=== PATIENT | male | born 2000 | race Caucasian/White ===

== ENCOUNTER 2023-08-18 21:01 | Emergency (ER) | payer MEDICAID ==
[~2023-08-18] VITALS: Ht 167.6 cm; Wt 51.5 kg
[2023-08-18 21:02] VITALS: BP 142/93; PULSE 83; RESP 16; TEMP 98.6; O2SAT 100
[2023-08-18 21:38] LABS: BASOPHILS % (AUTO) 0.3 % (0-1); EOSINOPHILS # (AUTO) 0.1 X10'3 (0-0.9); EOSINOPHILS % (AUTO) 0.8 % (0-6); HEMATOCRIT 47.3 % (42.0-52.0); HEMOGLOBIN 16.2 g/dl (14.0-17.9); LYMPHOCYTES # (AUTO) 1.6 X10'3 (1.1-4.8); MEAN CORPUSCULAR HEMOGLOBIN 32.9 PG (27.0-31.0); MEAN CORPUSCULAR HGB CONC 34.2 g/dL (33.0-36.5); MEAN CORPUSCULAR VOLUME 96.3 FL (78-98); MEAN PLATELET VOLUME 9.4 FL (7.4-10.4); MONOCYTES # (AUTO) 0.4 X10'3 (0-0.9); MONOCYTES % (AUTO) 5.2 % (2-12); NEUTROPHILS # (AUTO) 6.4 X10'3 (1.8-7.7); NEUTROPHILS % (AUTO) 74.7 % (42-75); PLATELET COUNT 233 X10'3 (140-440); RED BLOOD COUNT 4.91 X10'6 (4.70-6.10); RED CELL DISTRIBUTION WIDTH 13.3 % (11.5-14.5); WHITE BLOOD COUNT 8.6 X10'3 (4.5-11.0)
[2023-08-18 21:39] LABS: BILIRUBIN,URINE NEGATIVE (Neg); CLARITY,URINE CLEAR (Clear); COLOR,URINE YELLOW (Yellow); GLUCOSE, URINE NEGATIVE (Neg); KETONES,URINE NEGATIVE (Neg); LEUKOCYTE ESTERASE ,URINE NEGATIVE (Neg); NITRITES, URINE NEGATIVE (Neg); OCCULT BLOOD,URINE NEGATIVE (Neg); PROTEIN,URINE NEGATIVE (Neg); UROBILINOGEN,URINE 0.2 E.U/dL (0.2-1.0)
[2023-08-18 21:41] LABS: UA COLLECTION TYPE CLN CATCH MIDSTREAM
[2023-08-18 21:57] LABS: ALANINE AMINOTRANSFERASE 36 U/L (12-78); ALBUMIN 3.8 G/DL (3.4-5.0); ALBUMIN/GLOBULIN RATIO 1.1 (1.1-1.5); ALKALINE PHOSPHATASE 132 IU/L (20-180); ANION GAP 7 (8-16); ASPARTATE AMINO TRANSFERASE 47 U/L (10-37); BILIRUBIN,TOTAL 0.4 MG/DL (0.1-1.0); BLOOD UREA NITROGEN 8 MG/DL (7-18); BUN/CREATININE RATIO 8.3 (10.0-20.0); CALCIUM 9.5 MG/DL (8.5-10.1); CHLORIDE 100 MMOL/L (99-107); CREATININE 0.96 MG/DL (0.60-1.10); GLUCOSE 153 MG/DL (70-104); LIPASE 39 U/L (16-77); POTASSIUM 3.7 MMOL/L (3.5-5.1); SODIUM 137 MMOL/L (135-145); TOTAL PROTEIN 7.4 G/DL (6.4-8.2); eCRCL 89 ML/MIN; eGFR > 90 ML/MIN
[2023-08-18] MEDS ORDERED: ONDA4TAB12 PO (22:31)
== END 2023-08-18 22:38 | disposition home or self-care (01) ==
LOC: ER 21:02
DX: K52.89 Other specified noninfective gastroenteritis and colitis (principal); R73.9 Hyperglycemia, unspecified
CPT/HCPCS: 36415; 80053; 81003; 83690; 85025; 99283

== ENCOUNTER 2023-08-19 12:04 | Emergency (ER) | payer MEDICAID ==
[~2023-08-19] VITALS: Ht 170.2 cm; Wt 50.0 kg
[~2023-08-19 12:04] MED LIST: ONDA4TAB12 PO
[2023-08-19 12:36] VITALS: BP 134/117; PULSE 75; RESP 18; TEMP 98.4; O2SAT 99
[2023-08-19 14:32] LABS: BASOPHILS % (AUTO) 0.2 % (0-1); EOSINOPHILS % (AUTO) 0.1 % (0-6); HEMATOCRIT 47.1 % (42.0-52.0); LYMPHOCYTES # (AUTO) 1.7 X10'3 (1.1-4.8); LYMPHOCYTES % (AUTO) 19.6 % (21-51); MEAN CORPUSCULAR HEMOGLOBIN 32.4 PG (27.0-31.0); MEAN CORPUSCULAR VOLUME 95.3 FL (78-98); MEAN PLATELET VOLUME 9.3 FL (7.4-10.4); MONOCYTES # (AUTO) 0.6 X10'3 (0-0.9); MONOCYTES % (AUTO) 6.6 % (2-12); NEUTROPHILS # (AUTO) 6.5 X10'3 (1.8-7.7); NEUTROPHILS % (AUTO) 73.5 % (42-75); PLATELET COUNT 270 X10'3 (140-440); RED BLOOD COUNT 4.95 X10'6 (4.70-6.10); RED CELL DISTRIBUTION WIDTH 13.4 % (11.5-14.5); WHITE BLOOD COUNT 8.9 X10'3 (4.5-11.0)
[2023-08-19 14:44] LABS: ALANINE AMINOTRANSFERASE 27 U/L (12-78); ALBUMIN 3.8 G/DL (3.4-5.0); ALKALINE PHOSPHATASE 126 IU/L (20-180); ANION GAP 7 (8-16); ASPARTATE AMINO TRANSFERASE 23 U/L (10-37); BILIRUBIN,TOTAL 0.6 MG/DL (0.1-1.0); BLOOD UREA NITROGEN 6 MG/DL (7-18); BUN/CREATININE RATIO 6.5 (10.0-20.0); CALCIUM 9.6 MG/DL (8.5-10.1); CHLORIDE 98 MMOL/L (99-107); CREATININE 0.92 MG/DL (0.60-1.10); GLUCOSE 102 MG/DL (70-104); LIPASE 70 U/L (16-77); POTASSIUM 3.5 MMOL/L (3.5-5.1); SODIUM 135 MMOL/L (135-145); TOTAL CARBON DIOXIDE 30.5 MMOL/L (24-32); TOTAL PROTEIN 7.5 G/DL (6.4-8.2); eCRCL 91 ML/MIN; eGFR > 90 ML/MIN
[2023-08-19] MEDS ORDERED: iohexol 300mg/ml 100ml inj. ONE (17:53)
[2023-08-19] MEDS ORDERED: ketorolac tromethamine 15mg/ml inj. IV ONE (18:35)
[2023-08-19] MEDS ORDERED: normal saline 1000ML IV soln IVB ONE (18:35)
[2023-08-19] MEDS ORDERED: proCHLORperazine 10 MG/2 ml inj IV ONE (18:35)
[2023-08-19] MEDS ORDERED: diphenhydrAMINE 25 MG/10 ML UD oral solution PO STA (18:42)
[2023-08-19] MEDS ORDERED: LIDOcaine Viscous 15ml cup TP STA (18:42)
[2023-08-19] MEDS ORDERED: mag hydrox/Alum hydrox/simeth 30ml oral suspension PO ONE (18:45)
[2023-08-19] MEDS ORDERED: mag & alum hydrox/simeth susp 40 ML, diphenhydrAMINE oral solution 100 MG, LIDOcaine Vi... PO ONE ×3 (18:55)
[2023-08-19] MEDS ORDERED: mag & alum hydrox/simeth susp 40 ML, diphenhydrAMINE oral solution 100 MG, LIDOcaine Vi... PO PRN ×3 (18:55)
== END 2023-08-19 21:22 | disposition home or self-care (01) ==
LOC: ER 12:04
DX: K29.00 Acute gastritis without bleeding (principal); Z20.822 Contact with and (suspected) exposure to COVID-19; R11.2 Nausea with vomiting, unspecified; F41.9 Anxiety disorder, unspecified; F12.90 Cannabis use, unspecified, uncomplicated; Z79.899 Other long term (current) drug therapy
CPT/HCPCS: 36415; 74177; 80053; 83690; 85025; 87502; 87503; 87811; 96361; 96374; 96375; 99285; J0780; J1885; J3490; J7030; Q9967

== ENCOUNTER 2025-02-07 12:37 | Inpatient (IN) | payer MEDICAID ==
[~2025-02-07] VITALS: Ht 165.1 cm; Wt 62.6 kg
[~2025-02-07 12:37] MED LIST changes: +ONDA-243 PO; -ONDA4TAB12 PO
[2025-02-07] MEDS ORDERED: CefTRIAXone 2gm/NS 100ml IVPB 50 ML IV ONE (13:30)
[2025-02-07] MEDS ORDERED: vancomycin inj 1,000 MG in normal saline 250ml IV soln 250 ML IV ONE (13:35)
--- NOTE | 2025-02-07 13:36 | ELECTROCARDIOGRAPH REPORT ---
[facility] Test Date: 2025-02-07 Test Time: 13:33:33 Pat Name: ARIADNA JACOBS Department: [facility]- Patient ID: [id number] Room: Gender: M Manager Science: : 2000 Requested By: HERBERT MCCORMICK Order Number: [id number] Reading MD: Measurements Intervals [place] Rate: 69 P: 56 UT: 109 QRS: 83 QRSD: 90 T: 47 QT: 383 QTc: 411 Interpretive Statements Sinus rhythm Short UT interval Please click the below link to view image of tracing.
--- NOTE | 2025-02-07 13:38 | Physician Documentation ---
History of Present Illness ~ Chief Complaint: Penile Pain Stated Complaint: "INFECTION DOWN THERE" Time Seen by MD: 13:22 Primary Medical Doctor: ROXIE BRODY 24-year-old male presenting for acute onset penis and scrotum redness and swelling that started two days ago. Patient states that about five days ago he developed a diffuse rash on his arms and chest. He does not know what could have caused it. He went to urgent care a couple of days ago for the rash and was started on prednisone and ciprofloxacin. He states that since then he has noticed increased redness and swelling around his genitals. He states that his penis is now very swollen. He denies any burning or pain on urination. He denies any discharge from his urethra. He states that about five months ago he did have some unprotected sex but he has not had some issues since that time. He denies any fever, chills or any other associated symptoms. Denies any new soaps or detergents. Medication Reconciliation Allergies: Coded Allergies: No Known Allergies (Unverified , 10/07/09) Scheduled PRN ONDANSETRON ODT 4mg tablet (Ondansetron Odt), 4 MG PO TID PRN for nausea/vomiting Miscellaneous Medications Home Med List (No Home Medications), (Reported) Past Medical History Past Medical History: Anxiety Review of Systems All Other Systems at this time: Reviewed and Negative Physical Exam Vital Signs: Temperature: 98.3, Source: Oral, Heart Rate: 69, Respiratory Rate: 18, BP: 126/78, Pulse Oximetry: 98, Weight: 62.600 Oxygen Flow Rate: 0 Physical Exam I have reviewed the triage vitals. CONST: Well developed and well nourished. In no acute distress HENT: Head Atraumatic EYES: Pupils are equal, round and reactive to light. Normal conjunctiva NECK: Normal range of motion. Supple. CARDIO: Normal rate and regular rhythm. No murmurs, rubs, or gallops. S1, S2. PULM/CHEST: No respiratory distress. Lungs clear to auscultation. No wheeze ABD: Soft and nontender. Nondistended. Bowel sounds normal. No guarding. : Significant edema and erythema of the penile shaft as well as the scrotum. There is a erythematous maculopapular rash present also over the suprapubic area and the inner thighs. MSK: No edema. No deformity. NEURO: Alert and oriented to person, place and time. Moving all extremities SKIN: Warm and dry. There is a erythematous confluent rash on the arms PSYCH: Normal mood and affect. Good eye contact. Progress Results/Orders Results/Orders Orders - HERBERT MCCORMICK MD Culture Blood (02/07/25 13:27) RPR (02/07/25 13:30) Chlam/Gc Amp Ur (02/07/25 13:30) Us Testic/W/Duplex (02/07/25 13:34) Ct Chest Abdomen Pelvis (02/07/25 13:34) Page Hospitalist (02/07/25 17:05) Fill Out Med Reconciliation (02/07/25 17:05) Completed Orders - HERBERT MCCORMICK MD Electrocardiogram (02/07/25 13:27) Cbc/Diff (02/07/25 13:27) CK (02/07/25 13:27) CKMB (02/07/25 13:27) ESR (02/07/25 13:27) C-Reactive Protein (02/07/25 13:27) Pt Inr (02/07/25 13:27) PTT (02/07/25 13:27) Urinalysis, Cult If Indicated (02/07/25 13:27) MG (02/07/25 13:27) Normal Saline 1000ml (Sodium Chloride 10 (02/07/25 13:30) Dexamethasone Inj (Decadron 10mg/Ml Inj) (02/07/25 13:30) Ceftriaxone 2gm/Ns 100ml Ivpb (Rocephin (02/07/25 13:30) CMP (02/07/25 13:27) Hs Troponin I W Calculations (02/07/25 13:27) Hs Troponin I W Calculations (02/07/25 15:27) Lacticsepsis (02/07/25 13:27) Procalcitonin (02/07/25 13:27) Hiv Ab 1&2 Rapid Scn (02/07/25 13:30) Piperacillin/Tazo 4.5gm/100ml (Zosyn 4.5 (02/07/25 13:35) Vancomycin Inj (Vancomycin Inj) (02/07/25 13:35) Us Testic/W/Duplex (02/07/25 13:34) Ct Chest Abdomen Pelvis (02/07/25 13:34) Vancomycin/Ns 1 Gm Add-[place] (Vancomyc (02/07/25 13:46) Iohexol 300mg/Ml 100ml Inj. (Omnipaque-3 (02/07/25 13:59) Diphenhydramine Inj (Benadryl Inj.) (02/07/25 15:10) Famotidine/Pf Iv Inj (Pepcid Iv Inj) (02/07/25 15:10) Normal Saline 1000ml (Sodium Chloride 10 (02/07/25 17:00) Thiamine Tablet (Thiamine Tablet) (02/07/25 17:00) Folic Acid Tablet (Folic Acid Tablet) (02/07/25 17:00) Diazepam Inj (Valium Inj) (02/07/25 17:00) Ketorolac Trometh 30mg/Ml Vial (Toradol (02/07/25 17:00) Fluconazole Tablet (Diflucan Tablet) (02/07/25 17:10) Vital Signs 02/07/25 02/07/25 02/07/25 02/07/25 12:58 13:27 14:18 15:28 Temp 98.3 98.3 98.3 Pulse 82 69 78 66 Resp 16 18 16 14 B/P (MAP) 155/85 126/78 (94) 129/78 (95) 119/81 (94) Pulse Ox 100 98 98 100 O2 Flow Rate 0 0 0 0 02/07/25 16:56 Temp 98.3 Pulse 76 Resp 15 B/P (MAP) 120/73 (89) Pulse Ox 98 O2 Flow Rate 0 Laboratory Tests Test 02/07/25 14:28 02/07/25 16:48 02/07/25 16:55 White Blood Count 9.6 Red Blood Count 4.53 L Hemoglobin 15.3 Hematocrit 44.2 Mean Corpuscular Volume 97.4 Mean Corpuscular Hemoglobin 33.7 H Mean Corpuscular Hemoglobin Concent 34.6 Red Cell Distribution Width 13.1 Platelet Count 183 Mean Platelet Volume 9.6 Neutrophils (%) (Auto) 91.6 H Lymphocytes (%) (Auto) 5.6 L Monocytes (%) (Auto) 2.1 Eosinophils (%) (Auto) 0.6 Basophils (%) (Auto) 0.1 Neutrophils # (Auto) 8.8 H Lymphocytes # (Auto) 0.5 L Monocytes # (Auto) 0.2 Eosinophils # (Auto) 0.1 Basophils # (Auto) 0.0 CBC Comment Erythrocyte Sedimentation Rate 1 Prothrombin Time 11.1 INR International Normalized Ratio 1.1 Activated Partial Thromboplast Time 26 Coagulation Comments Sodium Level 141 Potassium Level 3.6 Chloride Level 106 Carbon Dioxide Level 29.1 Anion Gap 6 L Blood Urea Nitrogen 8 Creatinine 0.89 Estimated GFR/1.73 m2 > 90 BUN/Creatinine Ratio 9.0 L Glucose Level 122 H Lactic Acid Level 1.0 Calcium Level 8.7 Magnesium Level 1.7 Total Bilirubin 0.8 Aspartate Amino Transf (AST/SGOT) 14 Alanine Aminotransferase (ALT/SGPT) 12 Alkaline Phosphatase 93 Total Creatine Kinase 122 Creatine Kinase MB 1.2 Creatine Kinase MB Relative Index 1.0 Troponin I High Sensitivity 4 < 4 L C-Reactive Protein 0.19 Total Protein 6.9 Albumin 3.9 Globulin 3.0 Albumin/Globulin Ratio 1.3 Procalcitonin < 0.05 Chemistry Comments HIV (1&2) Antibody Non-reactive Troponin I High Sens Percent Delta Troponin I Hi Sens Absolute Change Urine Specimen Description Voided Urine Color Yellow Urine Clarity Clear Urine pH 8.0 Urine Specific [place] 1.010 Urine Protein Negative Urine Glucose (UA) Negative Urine Ketones Negative Urine Occult Blood Negative Urine Nitrite Negative Urine Bilirubin Negative Urine Urobilinogen 0.2 Urine Leukocyte Esterase Negative Urine Culture Indicated Not ind Volume Urine Centrifuged 10 ml Urine Comment Urine Opiates Screen Negative Urine Methadone Screen Negative Urine Fentanyl Screen Positive H Urine Barbiturates Screen Negative Urine Phencyclidine Screen Negative Urine Amphetamines Screen Negative Urine Benzodiazepines Screen Negative Urine Cocaine Screen Negative Urine Cannabinoids Screen Positive Drug Screen Comment Microbiology Date/Time Source Procedure Growth Status 02/07/25 16:48 Blood Hand Left Blood Culture - Preliminary NEGATIVE (LESS THAN 24 HOURS) Resulted EKG/XRAY/CT/US/VASC/MRI EKG : Additional Comment EKG as interpreted by ED shows normal sinus rhythm with a rate of 69 beats per minute, normal axis, no ischemia CT : Impression Exam: CT CT CHEST ABDOMEN PELVIS W/ IV CONTRAST History: penile and srotal swelling- r/o nec fasc Comparison Study: CT CT ABDOMEN PELVIS on DOS: 08/19/23 Technique: Multidetector spiral CT of the chest, abdomen and pelvis was performed from lower neck to pubic symphysis. Intravenous contrast was administered during this examination. Portal venous imaging was obtained. Axial, coronal and sagittal multiplanar reformats were performed by the technologist on a separate workstation. Radiation Dose : 1. Chest/Abdomen/Pelvis: CTDIvol 8.0 mGy, DLP 831 mGy*cm. Findings: Lower neck: Normal thyroid. Lungs: No focal consolidation, pleural effusion or pneumothorax. Heart/Vascular Structures: Normal heart size. No pericardial effusion. Lymph Nodes: No adenopathy Pleura: No pleural effusion or significant pneumothorax. Liver: The liver is normal in size. No focal lesions. Normal hepatic vascular enhancement. Gallbladder and Biliary Tree: Unremarkable Spleen: Unremarkable Pancreas: The pancreas is normal in appearance without focal lesions or abnormal enhancement. Adrenal Glands: Unremarkable Kidneys: Kidneys demonstrate normal symmetric enhancement without focal lesions, calculi or hydronephrosis. Bladder: Unremarkable Bowel: The stomach is grossly normal in appearance. Concentric wall thickening throughout the distal colon is suggestive of infectious/inflammatory colitis. The appendix is not visualized; however, no secondary findings of acute appendicitis identified. Ascites: Absent Lymphadenopathy: No mesenteric, retroperitoneal or periportal lymphadenopathy. Abdominal Wall and Mesentery: Unremarkable. Vasculature: The visualized abdominal aorta is normal in size and caliber. Abdominal and pelvic vessels demonstrate normal enhancement. Pelvic Organs: Scattered fat stranding is seen adjacent to the scrotum which may reflect focal infectious/ inflammatory process. No soft tissue gas or abscess is seen. No evidence of necrotizing fasciitis. Musculoskeletal: No aggressive focal bony lesions, acute fractures or dislocation. IMPRESSION: 1. Concentric wall thickening throughout the distal colon is suggestive of infectious/inflammatory colitis. 2. Scattered fat stranding is seen adjacent to the scrotum which may reflect focal infectious/ inflammatory process. No soft tissue gas or abscess is seen. No evidence of necrotizing fasciitis. Ultrasound : Impression ULTRASOUND OF SCROTUM AND CONTENTS. INDICATION: scrotal swelling COMPARISON: None TECHNIQUE: Multiple real-time grayscale sonographic and color and duplex Doppler images of the scrotum and its contents were obtained. FINDINGS: The right testicle measures 2.5 x 2.1 x 2.5 cm. The left testicle measures 3.6 x 2.3 x 2.1 cm. Both testicles demonstrate homogeneous echotexture without evidence of focal lesions. There is prominent diffuse scrotal edema. The right epididymal head measures 1.2 cm. The left epididymal head measures 1.5 cm. Subsequent color and duplex Doppler interrogation of the testes demonstrated symmetric normal vascular flow to both testicles. No focal areas of hyperemia were seen. The penis appears to be swollen and possibly bent, although not well visualized. IMPRESSION: Prominent diffuse scrotal edema. The penis also appears to be swollen and possibly bent, although not well visualized. Recommend clinical correlation. No evidence of torsion, epididymitis or orchitis. Medical Decision Making Additional Comment This is a 24-year-old male presenting with significant erythema and edema of his penis and scrotum which is of acute onset. Differential diagnosis broad and includes but not limited to penile and scrotal cellulitis versus allergic inflammatory reaction versus sexually transmitted disease amongst other etiologies. The patient's lab work is grossly unremarkable. A ultrasound of the scrotum indicates thickening of the scrotal wall. CT of the abdomen and pelvis is negative for any signs of necrotizing fasciitis however there is ext ensive fat stranding around the scrotum. The patient was medicated with IV vancomycin and Zosyn. He was also given 10 mg of IV dexamethasone. He was also given 50 mg of IV Benadryl and 20 mg of IV Pepcid with good improvement of his symptoms. I did speak with Dr. Taylor of Urology who recommended medical management at this time. Given the extent of the erythema and edema I believe it would be prudent to have the patient admitted for medical management and observation until his symptoms further improve. Report called to admitting hospitalist team who accepted the patient. STD tests including HIV, gonorrhea and chlamydia, RPR were also done and are pending at this time. Departure Disposition: ADMITTED INPATIENT Admitted to Inpatient Unit: to hospitalist Impression: Primary Impression: Penile cellulitis Additional Impressions: Cellulitis of scrotum Tinea cruris Condition: Guarded Referrals: NO PRIMARY CARE PROVIDER (PCP) Signature Scribe Signature: 1 Attestation: 1 HERBERT MCCORMICK MD February 07, 2025 13:38
[2025-02-07] MEDS ORDERED: iohexol 300mg/ml 100ml inj. ONE (13:59)
[2025-02-07] MEDS: dexamethasone sod phosphate 10mg/ml inj IV ONE (14:10)
[2025-02-07] MEDS: normal saline 1000ML IV soln IVB ONE (14:10)
--- NOTE | 2025-02-07 14:28 | RADIOLOGY REPORT ---
ULTRASOUND OF SCROTUM AND CONTENTS. INDICATION: scrotal swelling COMPARISON: None TECHNIQUE: Multiple real-time grayscale sonographic and color and duplex Doppler images of the scrotu m and its contents were obtained. FINDINGS: The right testicle measures 2.5 x 2.1 x 2.5 cm. The left testicle measures 3.6 x 2.3 x 2.1 cm. Both testicles demonstrate homogeneous echotexture without evidence of focal lesions. There is promin ent diffuse scrotal edema. The right epididymal head measures 1.2 cm. The left epididymal head measures 1.5 cm. Subsequent color and duplex Doppler interrogation of the testes demonstrated symmetric normal vascula r flow to both testicles. No focal areas of hyperemia were seen. The penis appears to be swollen and possibly bent, although not well visualized. IMPRESSION: Prominent diffuse scrotal edema. The penis also appears to be swollen and possibly bent, although not well visualized. Recommend clinical correlation. No evidence of torsion, epididymitis or orchitis.
[2025-02-07 14:59] LABS: BASOPHILS % (AUTO) 0.1 % (0-1); EOSINOPHILS # (AUTO) 0.1 X10'3 (0-0.9); EOSINOPHILS % (AUTO) 0.6 % (0-6); HEMATOCRIT 44.2 % (42.0-52.0); HEMOGLOBIN 15.3 g/dl (14.0-17.9); LYMPHOCYTES # (AUTO) 0.5 X10'3 (1.1-4.8); LYMPHOCYTES % (AUTO) 5.6 % (21-51); MEAN CORPUSCULAR HEMOGLOBIN 33.7 PG (27.0-31.0); MEAN CORPUSCULAR HGB CONC 34.6 g/dL (33.0-36.5); MEAN CORPUSCULAR VOLUME 97.4 FL (78-98); MEAN PLATELET VOLUME 9.6 FL (7.4-10.4); MONOCYTES # (AUTO) 0.2 X10'3 (0-0.9); MONOCYTES % (AUTO) 2.1 % (2-12); NEUTROPHILS # (AUTO) 8.8 X10'3 (1.8-7.7); NEUTROPHILS % (AUTO) 91.6 % (42-75); PLATELET COUNT 183 X10'3 (140-440); RED BLOOD COUNT 4.53 X10'6 (4.70-6.10); RED CELL DISTRIBUTION WIDTH 13.1 % (11.5-14.5); WHITE BLOOD COUNT 9.6 X10'3 (4.5-11.0)
[2025-02-07 15:12] LABS: APTT 26 SECONDS (22-32); INR 1.1 INR; PROTHROMBIN TIME 11.1 SECONDS (9.0-12.0)
--- NOTE | 2025-02-07 15:19 | RADIOLOGY REPORT ---
Exam: CT CT CHEST ABDOMEN PELVIS W/ IV CONTRAST History: penile and srotal swelling- r/o nec fasc Comparison Study: CT CT ABDOMEN PELVIS on DOS: 08/19/23 Technique: Multidetector spiral CT of the chest, abdomen and pelvis was performed from lower neck to pubic symphysis. Intravenous contrast was administered during this examination. Portal venous imagi ng was obtained. Axial, coronal and sagittal multiplanar reformats were performed by the technologist on a separate workstation. Radiation Dose : 1. Chest/Abdomen/Pelvis: CTDIvol 8.0 mGy, DLP 831 mGy*cm. Findings: Lower neck: Normal thyroid. Lungs: No focal consolidation, pleural effusion or pneumothorax. Heart/Vascular Structures: Normal heart size. No pericardial effusion. Lymph Nodes: No adenopathy Pleura: No pleural effusion or significant pneumothorax. Liver: The liver is normal in size. No focal lesions. Normal hepatic vascular enhancement. Gallbladder and Biliary Tree: Unremarkable Spleen: Unremarkable Pancreas: The pancreas is normal in appearance without focal lesions or abnormal enhancement. Adrenal Glands: Unremarkable Kidneys: Kidneys demonstrate normal symmetric enhancement without focal lesions, calculi or hydroneph rosis. Bladder: Unremarkable Bowel: The stomach is grossly normal in appearance. Concentric wall thickening throughout the distal colon is suggestive of infectious/inflammatory colitis. The appendix is not visualized; however, no secondary findings of acute appendicitis identified. Ascites: Absent Lymphadenopathy: No mesenteric, retroperitoneal or periportal lymphadenopathy. Abdominal Wall and Mesentery: Unremarkable. Vasculature: The visualized abdominal aorta is normal in size and caliber. Abdominal and pelvic vess els demonstrate normal enhancement. Pelvic Organs: Scattered fat stranding is seen adjacent to the scrotum which may reflect focal infect ious/ inflammatory process. No soft tissue gas or abscess is seen. No evidence of necrotizing fasciit is. Musculoskeletal: No aggressive focal bony lesions, acute fractures or dislocation. IMPRESSION: 1. Concentric wall thickening throughout the distal colon is suggestive of infectious/inflammatory co litis. 2. Scattered fat stranding is seen adjacent to the scrotum which may reflect focal infectious/ inflam matory process. No soft tissue gas or abscess is seen. No evidence of necrotizing fasciitis.
[2025-02-07] MEDS: famotidine/PF 10 mg/ml inj IV ONE (15:20)
[2025-02-07] MEDS: diphenhydrAMINE 50 mg/ml inj IV ONE (15:20)
[2025-02-07] MEDS: vancomycin/NS 1 GM ADD-VANTAGE 250 ML IV ONE (15:21)
[2025-02-07 15:24] LABS: ALANINE AMINOTRANSFERASE 12 U/L (12-78); ALBUMIN 3.9 G/DL (3.4-5.0); ALBUMIN/GLOBULIN RATIO 1.3 (1.1-1.5); ALKALINE PHOSPHATASE 93 IU/L (46-116); ANION GAP 6 (8-16); ASPARTATE AMINO TRANSFERASE 14 U/L (10-37); BILIRUBIN,TOTAL 0.8 MG/DL (0.1-1.0); BLOOD UREA NITROGEN 8 MG/DL (7-18); CALCIUM 8.7 MG/DL (8.5-10.1); CHLORIDE 106 MMOL/L (99-107); CREATININE 0.89 MG/DL (0.60-1.10); GLUCOSE 122 MG/DL (70-104); POTASSIUM 3.6 MMOL/L (3.5-5.1); SODIUM 141 MMOL/L (135-145); TOTAL CARBON DIOXIDE 29.1 MMOL/L (24-32); TOTAL PROTEIN 6.9 G/DL (6.4-8.2); eCRCL 113 ML/MIN; eGFR > 90 ML/MIN
[2025-02-07 15:29] LABS: C-REACTIVE PROTEIN 0.19 MG/DL (0.0-0.5); CREATINE KINASE 122 U/L (39-308); CREATINE KINASE MB 1.2 ng/ml (0.3-3.6); MAGNESIUM 1.7 MG/DL (1.5-2.4)
[2025-02-07 15:38] LABS: HIV ANTIBODY 1&2 RAPID NON-REACTIVE (Neg)
[2025-02-07] MEDS: piperacillin/tazo 4.5gm/100ml 100 ML IV SCH ×2 (16:51→23:53)
[2025-02-07] MEDS ORDERED: folic acid 1mg tablet PO ONE (17:00)
[2025-02-07] MEDS ORDERED: ketorolac trometh 30MG/ML vial 30 MG/ML VIAL IV ONE (17:00)
[2025-02-07] MEDS ORDERED: thiamine 100mg tablet PO ONE (17:00)
--- NOTE | 2025-02-07 17:11 | HISTORY AND PHYSICAL ---
History & Physical Providers to ~ History of Present Illness Reason for Admit\Complaint: Penile swelling History of Present Illness History of present illness patient is a pleasant 24-year-old gentleman with no past medical history of significance was in his usual state of health started developing a rash about three days ago over his entire body mostly in his left chest wall bilateral antecubital fossas and then he started spreading into his private area but now the swelling in his penis is becomes so enlarged and painful and pruritic that he decided to come to the ER. Patient states this all began as him kind of feeling itchy about three days ago and when he started itching himself this would not go away and the redness in the itching got worse he felt like he should take a shower he did and still that it not help. patient's was seen in the ER by ER physician was concerned and ordered a CT scan of the abdomen and pelvis which is essentially negative a scrotal ultrasound which shows a bent swollen penis. He also consulted with the urologist Dr. Taylor over the telephone who said this does not seem anything urgent but she is happy to follow along if necessary. Patient denies any other associated symptoms. Allergies: Coded Allergies: No Known Allergies (Unverified , 10/07/09) Home Medications Home Medications Active Ondansetron Odt (Ondansetron HCl) 4 Mg Tab.rapdis 4 Mg PO TID PRN Past Medical History Past Medical History Past medical history nothing of significance Past surgical history nothing of significance Allergies are NKDA Social history denies any tobacco EtOH or IV drug abuse has tried marijuana in the past single lives locally Family history nothing of significance Review of systems negative for all 10 systems reviewed he says he is not currently sexually active he has been in the past and his last sexual encounter was 4-6 months ago Exam Vitals: Vital Signs Date Time Temp Pulse Resp B/P (MAP) Pulse Ox O2 Delivery O2 Flow Rate FiO2 02/07/25 16:56 98.3 76 15 120/73 (89) 98 0 General: Patient is alert and oriented x4 in no acute distress lying down comfortably speaking in full sentences HEENT normocephalic nontraumatic head PERRLA. EOMI. CVS first and second heart sounds are regular rate rhythm no murmurs gallops or rubs Respiratory system is clear to auscultate bilaterally no rales rhonchi crackles or wheezing Abdomen is soft scaphoid benign bowel sounds are positive nontender nondistended Extremities no clubbing cyanosis or edema His penis is plus two swollen the whole area in his groin is very red not warm to touch no active rash noted He does have a rash over his bilateral antecubital fossas more on the left over his entire chest wall more on the left than the right Neurological exam no focal deficits Diagnostic Data Last Recorded Lab Results: 02/07/25 1428 02/07/25 1428 Diagnostic Data: Laboratory Tests Test 02/07/25 14:28 Prothrombin Time 11.1 SECONDS (9.0-12.0) INR International Normalized Ratio 1.1 INR Activated Partial Thromboplast Time 26 SECONDS (22-32) Coagulation Comments Additional Plan Assessment and plan -rash etiology unclear possibly an allergic reaction to something -penile cellulitis with significant swelling patient is started on vanco and Zosyn I have ordered a full STD panel -I ordered patient DVT prophylaxis Date of Service: February 07, 2025 Billing Provider: MITCH SARABIA MD Common Visit Codes: [id number] INP/OBS CARE (HIGH) MITCH SARABIA MD February 07, 2025 17:11
[2025-02-07] MEDS ORDERED: acetaminophen 325mg tablet PO PRN (17:15)
[2025-02-07] MEDS ORDERED: morphine 2 MG/ML inj. syringe IV PRN (17:15)
[2025-02-07] MEDS ORDERED: magnesium hydroxide 30ml (MOM) UD suspension PO PRN (17:15)
[2025-02-07] MEDS ORDERED: potassium Cl 40MEQ/1/2NS 520ml 520 ML IV PRN (17:15)
[2025-02-07] MEDS ORDERED: magnesium Cl slow-release 64mg tablet PO PRN (17:15)
[2025-02-07] MEDS ORDERED: magnesium sulf-water 2g/50mL 50 ML IV PRN (17:15)
[2025-02-07] MEDS ORDERED: potassium Cl 20 mEq SR tablet PO PRN ×2 (17:15)
[2025-02-07] MEDS ORDERED: diphenhydrAMINE 25mg capsule PO PRN (17:15)
[2025-02-07] MEDS ORDERED: HYDROcodone/acetaminophen 5mg/325mg tablet PO PRN (17:15)
[2025-02-07] MEDS ORDERED: magnesium sulf-water 4G/100mL 100 ML IV PRN (17:15)
[2025-02-07] MEDS ORDERED: mag hydrox/Alum hydrox/simeth 30ml oral suspension PO PRN (17:15)
[2025-02-07] MEDS ORDERED: HYDROcodone/acetaminophen 10/325mg tab PO PRN (17:15)
[2025-02-07] MEDS ORDERED: ondansetron/PF 4mg/2ml inj IV PRN (17:15)
[2025-02-07 17:54] LABS: BILIRUBIN,URINE NEGATIVE (Neg); CLARITY,URINE CLEAR (Clear); COLOR,URINE YELLOW (Yellow); GLUCOSE, URINE NEGATIVE (Neg); KETONES,URINE NEGATIVE (Neg); LEUKOCYTE ESTERASE ,URINE NEGATIVE (Neg); NITRITES, URINE NEGATIVE (Neg); OCCULT BLOOD,URINE NEGATIVE (Neg); PROTEIN,URINE NEGATIVE (Neg); UROBILINOGEN,URINE 0.2 E.U/dL (0.2-1.0)
[2025-02-07] MEDS: fluconazole 150mg tablet PO ONE (17:59)
[2025-02-07] MEDS: normal saline 1000ml 1,000 ML IV ONE (18:00)
[2025-02-07 18:02] LABS: URINE AMPHETAMINE SCREEN NEGATIVE (Neg); URINE BARBITUATE SCREEN NEGATIVE (Neg); URINE BENZODIAZEPINES SCREEN NEGATIVE (Neg); URINE CANNABINOID SCREEN POSITIVE (Neg); URINE COCAINE SCREEN NEGATIVE (Neg); URINE METHADONE SCREEN NEGATIVE (Neg); URINE OPIATE SCREEN NEGATIVE (Neg); URINE PHENCYCLIDINE SCREEN NEGATIVE (Neg)
[2025-02-07 18:10] LABS: UA COLLECTION TYPE VOIDED
[2025-02-07] MEDS: diazepam inj 5 MG/ML inj. IV ONE (19:00)
[2025-02-07] MEDS ORDERED: NO HOME MEDS (19:56)
[2025-02-07] MEDS: K and/or MAG REPLACEMENT MC SCH (20:00)
[2025-02-07 22:00] VITALS: BP 122/82; PULSE 76; RESP 16; TEMP 97.5; O2SAT 99
[2025-02-07] MEDS: nystatin 15 GM powder TP SCH (23:29)
[2025-02-07] MEDS: lactobacillus rhamnosus 10,000 MMU CELLS/CAPSULE PO SCH (23:29)
[2025-02-07] MEDS: docusate sod 100mg capsule PO SCH (23:29)
[2025-02-08] MEDS: VANCOmycin 1250MG/NS 250ml Bag 250 ML IV SCH (04:00)
[2025-02-08 05:15] LABS: BASOPHILS % (AUTO) 0.1 % (0-1); EOSINOPHILS % (AUTO) 0.2 % (0-6); HEMATOCRIT 41.5 % (42.0-52.0); HEMOGLOBIN 14.2 g/dl (14.0-17.9); LYMPHOCYTES # (AUTO) 0.7 X10'3 (1.1-4.8); LYMPHOCYTES % (AUTO) 11.1 % (21-51); MEAN CORPUSCULAR HEMOGLOBIN 33.5 PG (27.0-31.0); MEAN CORPUSCULAR HGB CONC 34.2 g/dL (33.0-36.5); MEAN PLATELET VOLUME 9.9 FL (7.4-10.4); MONOCYTES # (AUTO) 0.2 X10'3 (0-0.9); MONOCYTES % (AUTO) 3.3 % (2-12); NEUTROPHILS # (AUTO) 5.3 X10'3 (1.8-7.7); NEUTROPHILS % (AUTO) 85.3 % (42-75); PLATELET COUNT 178 X10'3 (140-440); RED BLOOD COUNT 4.24 X10'6 (4.70-6.10); RED CELL DISTRIBUTION WIDTH 13.3 % (11.5-14.5); WHITE BLOOD COUNT 6.2 X10'3 (4.5-11.0)
[2025-02-08 05:32] LABS: ALANINE AMINOTRANSFERASE 16 U/L (12-78); ALBUMIN 3.5 G/DL (3.4-5.0); ALBUMIN/GLOBULIN RATIO 1.2 (1.1-1.5); ALKALINE PHOSPHATASE 86 IU/L (46-116); ANION GAP 9 (8-16); ASPARTATE AMINO TRANSFERASE 20 U/L (10-37); BILIRUBIN,TOTAL 0.9 MG/DL (0.1-1.0); BLOOD UREA NITROGEN 6 MG/DL (7-18); BUN/CREATININE RATIO 6.5 (10.0-20.0); CALCIUM 8.8 MG/DL (8.5-10.1); CHLORIDE 106 MMOL/L (99-107); CREATININE 0.92 MG/DL (0.60-1.10); GLUCOSE 132 MG/DL (70-104); MAGNESIUM 1.8 MG/DL (1.5-2.4); POTASSIUM 4.2 MMOL/L (3.5-5.1); SODIUM 141 MMOL/L (135-145); TOTAL PROTEIN 6.4 G/DL (6.4-8.2); eCRCL 110 ML/MIN; eGFR > 90 ML/MIN
[2025-02-08 06:00] VITALS: BP 117/69; PULSE 75; RESP 15; TEMP 97.4; O2SAT 98
[2025-02-08] MEDS: enoxaparin 40mg/0.4ml syringe SUBCUT SCH (08:00)
--- NOTE | 2025-02-08 10:14 | PROGRESS NOTE ---
Daily Progress Note Providers to CC ~ Antibiotic Timeout Antibiotic Ordered?: Yes Subjective Chief complaint rashes worse not better Patient's grandmother is at the bedside who says recently he has been doing a lot of gardening and may have come upon some poison bhavna or poison oak. Objective Vital Signs Date Time Temp Pulse Resp B/P (MAP) Pulse Ox O2 Delivery O2 Flow Rate FiO2 02/08/25 00:01 Room Air 0.0 02/07/25 22:00 97.5 76 16 122/82 (95) 99 Result Diagram: 02/08/254 02/08/25453 Patient is alert and oriented x4 in no acute distress CVS first and second heart sounds are regular rate rhythm no murmurs gallops or rubs Respiratory system is clear to auscultate bilaterally no rales rhonchi crackles or wheezing Abdomen is soft scaphoid bowel sounds are positive Extremities no clubbing cyanosis or edema The rash over his antecubital fossas over his left chest wall and his groin is actually worsened it is more red and the skin is more indurated looking today not warm to touch in his penile swelling is not any better than yesterday. Coagulation Studies Laboratory Tests Test 02/07/25 14:28 Prothrombin Time 11.1 SECONDS (9.0-12.0) INR International Normalized Ratio 1.1 INR Activated Partial Thromboplast Time 26 SECONDS (22-32) Coagulation Comments Problem\Assessment\Plan Assessment and plan -allergic reaction to questionable poison bhavna poison oak we will start the patient on IV Decadron and topical hydrocortisone -penile cellulitis Continue IV vanco and Zosyn Pending STD panel -continue DVT prophylaxis Date of Service: February 08, 2025 Billing Provider: MITCH SARABIA MD Common Visit Codes: [id number] INP/OBS CARE(HIGH) MITCH SARABIA MD February 08, 2025 10:14
[2025-02-08 11:00] VITALS: BP 111/65; PULSE 63; RESP 14; TEMP 98; O2SAT 99
[2025-02-08] MEDS: dexamethasone 4mg/ml inj IV SCH (14:19)
[2025-02-08] MEDS: hydrocortisone 1% cream 28gm TP SCH (17:19)
[2025-02-08 18:30] VITALS: BP 114/57; PULSE 60; RESP 16; TEMP 97.1; O2SAT 99
[2025-02-08] MEDS ORDERED: morphine 4 MG/ML inj SYRINge IV PRN (20:14)
[2025-02-08 22:00] VITALS: BP 115/81; PULSE 77; RESP 12; TEMP 97.6; O2SAT 99
[2025-02-08] MEDS: diphenhydrAMINE 50 mg/ml inj IV PRN (22:28)
[2025-02-09] MEDS: VANCOMYCIN LEVEL IV ONE (03:41)
[2025-02-09 04:03] LABS: ALANINE AMINOTRANSFERASE 21 U/L (12-78); ALBUMIN/GLOBULIN RATIO 1.2 (1.1-1.5); ALKALINE PHOSPHATASE 90 IU/L (46-116); ANION GAP 10 (8-16); ASPARTATE AMINO TRANSFERASE 32 U/L (10-37); BILIRUBIN,TOTAL 0.6 MG/DL (0.1-1.0); BLOOD UREA NITROGEN 8 MG/DL (7-18); BUN/CREATININE RATIO 7.3 (10.0-20.0); CALCIUM 9.1 MG/DL (8.5-10.1); CHLORIDE 104 MMOL/L (99-107); CREATININE 1.09 MG/DL (0.60-1.10); GLUCOSE 127 MG/DL (70-104); MAGNESIUM 1.9 MG/DL (1.5-2.4); POTASSIUM 3.6 MMOL/L (3.5-5.1); SODIUM 144 MMOL/L (135-145); TOTAL PROTEIN 7.3 G/DL (6.4-8.2); VANCOMYCIN,TROUGH 12.2 ug/mL (10.0-20.0); eCRCL 92 ML/MIN; eGFR 85 ML/MIN
[2025-02-09 06:00] VITALS: BP 108/77; PULSE 60; RESP 16; TEMP 98; O2SAT 100
[2025-02-09 06:07] LABS: BASOPHILS % (AUTO) 0 % (0-1); EOSINOPHILS % (AUTO) 0.1 % (0-6); HEMATOCRIT 42.3 % (42.0-52.0); HEMOGLOBIN 14.5 g/dl (14.0-17.9); LYMPHOCYTES # (AUTO) 0.5 X10'3 (1.1-4.8); LYMPHOCYTES % (AUTO) 6.3 % (21-51); MEAN CORPUSCULAR HEMOGLOBIN 33.5 PG (27.0-31.0); MEAN CORPUSCULAR HGB CONC 34.3 g/dL (33.0-36.5); MEAN CORPUSCULAR VOLUME 97.8 FL (78-98); MEAN PLATELET VOLUME 10.8 FL (7.4-10.4); MONOCYTES # (AUTO) 0.2 X10'3 (0-0.9); MONOCYTES % (AUTO) 2.5 % (2-12); NEUTROPHILS # (AUTO) 7.7 X10'3 (1.8-7.7); NEUTROPHILS % (AUTO) 91.1 % (42-75); PLATELET COUNT 178 X10'3 (140-440); RED BLOOD COUNT 4.33 X10'6 (4.70-6.10); RED CELL DISTRIBUTION WIDTH 13.1 % (11.5-14.5); WHITE BLOOD COUNT 8.4 X10'3 (4.5-11.0)
[2025-02-09 08:00] VITALS: RESP 16; O2SAT 100
[2025-02-09] MEDS ORDERED: sod chloride 0.9% 10ml flush syringe IV ONE (08:00)
[2025-02-09 09:47] LABS: PLATELET ESTIMATE NORMAL
[2025-02-09] MEDS ORDERED: CEPH-585 PO (09:47)
[2025-02-09] MEDS ORDERED: DOXY100C2 PO (09:47)
[2025-02-09] MEDS ORDERED: PRED10TA23 PO (09:47)
[2025-02-09 09:48] LABS: LARGE PLATELETS FEW
[2025-02-09 11:00] VITALS: BP 112/75; PULSE 57; RESP 18; TEMP 98.2; O2SAT 99
--- NOTE | 2025-02-09 11:02 | DISCHARGE SUMMARY ---
Discharge Summary Providers to CC ~ Discharge Summary Admission Diagnosis: scrotal cellulitis Hospital Course DATE OF ADMISSION: 02/07/25 DATE OF DISCHARGE: 02/09/25 Discharge Diagnosis\\Comment: Poison Tia Rash Scrotal cellulitis Operations\\Procedures: None Consultants: None Complications: None Condition on DC: Stable New Medications: Cephalexin*Monohydrate* (Keflex*) 500 Mg Capsule 1 CAP PO QID for 7 Days, #42 CAP Doxycycline Hyclate (Doxycycline Hyclate) 100 Mg Capsule 1 CAP PO Q12H for 7 Days, #14 CAP Prednisone (Prednisone) 10 Mg Tablet 0 PO DAILY, #42 TAB Take 6 tabs/day x2 days then 5 daily x2 days 4 daily x2 days 3 daily x2 days 2 daily x2 days 1 daily x2 days then stop. Continued Medications: Home Med List (No Home Medications) Each ONDANSETRON ODT 4mg tablet (Ondansetron Odt) 4 Mg Tab.rapdis 4 MG PO TID PRN for nausea/vomiting, #10 TAB Discharge Summary: History of Present Illness From H&P: "Julian Perrin is a pleasant 24-year-old gentleman with no past medical history of significance was in his usual state of health started developing a rash about three days ago over his entire body mostly in his left chest wall bilateral antecubital fossas and then he started spreading into his private area but now the swelling in his penis is becomes so enlarged and painful and pruritic that he decided to come to the ER. Patient states this all began as him kind of feeling itchy about three days ago and when he started itching himself this would not go away and the redness in the itching got worse he felt like he should take a shower he did and still that it not help." Hospital Course Diagnostic findings were notable for testicular ultrasound and CT abdomen/pelvis indicating scrotal cellulitis without evidence of abscess, necrotizing fasciitis, testicular torsion, epididymitis or orchitis. Physical assessment was notable for diffuse rashes in chest wall. Vss, labs were unremarkable. Patient stated last sexual activity six months ago and denies dysuria. Case was discussed with the urologist Dr. Taylor over the telephone who said this does not seem anything urgent but she is happy to follow along if necessary. Patient was treated with steroid and empirical antibiotics. With start of treatment, pruitic rashes and scrotal edema improved. Patient did not experience further complications throughout the entire hospital stay and made a good recovery. Patient was seen and examined on the day of discharge. On day of discharge, vss and labs unremarkable. STD panel pending on day of discharge. All labs, diagnostic workups, discharge plan discussed with patient in details during visit before discharge. All questions and concerns answered to the best of my professional knowledge. Patient is to be discharged to home to self and to follow-up with PCP within 2 weeks. Physical Exam General: A&Ox 3, NAD HEENT: Normocephalic, PERRLA Neck: Supple, trachea midline, no JVD Chest: Clear to auscultation bilaterally Cardiovascular: RRR, S1&S2 GI: Soft and nontender : Mild improving scrotal cellulitis Extremities: No cyanosis/clubbing/or edema [employer]: CN II-XII intact, no focal deficits Musculoskeletal: No paraspinal muscle tenderness, no muscle spasm Skin: Generalized rashes in chest, rashes in b/l groin *Problems/Diagnosis: (1) Cellulitis of scrotum Status: Acute Total Time Spent on D/C: > 30 Minutes Date of Service: February 09, 2025 Billing Provider: EVANGELINA STRICKLAND Common Visit Codes: 73477-BNJ/OBS DISCH DAY >30min EVANGELINA STRICKLAND February 09, 2025 11:01
[2025-02-09] MEDS ORDERED: VANCOMYCIN 1,500MG in NS 300ml IVPB IV SCH (16:00)
[2025-02-10] MEDS ORDERED: VANCOMYCIN/WATER FOR INJ (PEG) 1.5GM/300 ML IVPB IV SCH (04:00)
[2025-02-10 07:12] LABS: HBSAG SCREEN Negative (Negative); HEP A AB, IGM Negative (Negative); HEP B CORE AB, IGM Negative (Negative); HEPATITIS C VIRUS ANTIBODY Non Reactive (Non Reactive)
[2025-02-11] MEDS ORDERED: VANCOMYCIN LEVEL IV ONE (03:30)
[2025-02-11 05:23] LABS: CHLAMYDIA TRACHOMATIS, NAA Negative (Negative)
== END 2025-02-09 14:40 | disposition home or self-care (01) | DRG 501 ==
LOC: ER 12:37 → ED HOLD 17:17 → SUR 3N 20:39
PROVIDERS: ADMIT Internal Medicine; ATTEND Internal Medicine
PROC: BW211ZZ Computerized Tomography (CT Scan) of Abdomen and Pelvis using Low Osmolar Contrast (ICD-10-PCS; principal; 2025-02-07)
DX: N48.22 Cellulitis of corpus cavernosum and penis (principal); B35.6 Tinea cruris; L23.7 Allergic contact dermatitis due to plants, except food; N50.89 Other specified disorders of the male genital organs; F41.9 Anxiety disorder, unspecified
CPT/HCPCS: 36415; 71260; 74177; 76870; 80053; 80074; 80202; 80305; 81003; 82550; 82553; 83605; 83735; 84145; 84484; 85008; 85025; 85610; 85651; 85730; 86140; 86592; 86703; 87040; 87081; 87491; 87529; 93005; 93976; 96361; 96365; 96375; 99285; G0378; J1100; J1200; J2543; J3360; J3370; J3490; J7030; Q9967